=== PATIENT | male | born 1960 | race Caucasian/White ===

== ENCOUNTER → 2019-03-26 | Outpatient (CLI) | payer OTHER | END | disposition home or self-care (01) | LOC: ROC 08:11 | PROVIDERS: ATTEND Radiology Radiation Oncology | DX: C01 Malignant neoplasm of base of tongue (principal); F17.290 Nicotine dependence, other tobacco product, uncomplicated | CPT/HCPCS: 99215; G0463 ==

== ENCOUNTER 2019-04-09 06:06 | Day surgery (SDC) | payer OTHER ==
[~2019-04-09] VITALS: Ht 180.3 cm; Wt 113.4 kg
[2019-04-09] MEDS ORDERED: CEFAZOLIN PMX 1GM/50ML 50 ML IV STA (06:51)
[2019-04-09] MEDS ORDERED: SODIUM CHLORIDE 0.9% 1,000 ML IV SCH (06:51)
[2019-04-09 06:58] VITALS: BP 155/105
[2019-04-09] MEDS ORDERED: FENTANYL PF 100 MCG/2ML ONE (07:45)
[2019-04-09] MEDS ORDERED: FLUMAZENIL 0.1 MG/1 ML, 5ML ONE (07:45)
[2019-04-09] MEDS ORDERED: MIDAZOLAM 1 MG/ML, 5ML ONE (07:45)
[2019-04-09] MEDS ORDERED: NALOXONE 1 MG/ML, 2ML ONE (07:46)
[2019-04-09] MEDS ORDERED: OMNIPAQUE 350 MG/ML, 100ML BOTTLE ONE (08:18)
== END 2019-04-09 08:45 | disposition home or self-care (01) ==
LOC: OUT 06:06
PROVIDERS: ATTEND Radiology Radiation Oncology
DX: C01 Malignant neoplasm of base of tongue (principal); K76.0 Fatty (change of) liver, not elsewhere classified; F17.210 Nicotine dependence, cigarettes, uncomplicated; Z98.890 Other specified postprocedural states; Z80.0 Family history of malignant neoplasm of digestive organs; Z82.49 Family history of ischemic heart disease and other diseases of the circulatory system
CPT/HCPCS: 70491; 74160; J2250; J3010; J7030; Q9967; J2310

== ENCOUNTER → 2019-04-22 | Outpatient (CLI) | payer OTHER | END | disposition home or self-care (01) | LOC: CFH 07:12 | PROVIDERS: ATTEND Internal Medicine Hematology & Oncology | DX: C01 Malignant neoplasm of base of tongue (principal); R94.5 Abnormal results of liver function studies | CPT/HCPCS: 76700 ==

== ENCOUNTER 2019-05-11 14:40 | Observation (INO) | payer OTHER ==
[~2019-05-11] VITALS: Ht 182.9 cm; Wt 99.1 kg
--- NOTE | 2019-05-11 14:46 | NUR ---
CODE NEURO INITIATED AT 1430. [facility] ARRIVED AT 1440. NEUROLOGIST PAGED AT 1444.
[2019-05-11 15:22] LABS: BASOPHILS % (AUTO) 0 % (0-1); EOSINOPHILS % (AUTO) 0 % (1-7); LYMPHOCYTES # (AUTO) 0.35 x10^3/uL (1-3.4); LYMPHOCYTES % (AUTO) 10 % (22-44); MD NO; MEAN CORPUSCULAR HEMOGLOBIN 30.9 pg (27.5-34.5); MEAN CORPUSCULAR HGB CONC 34.4 g/dL (33.2-36.2); MEAN PLATELET VOLUME 6.9 fL (7.4-10.4); MONOCYTES # (AUTO) 0.06 x10^3/uL (0.2-0.8); MONOCYTES % (AUTO) 2 % (2-9); NEUTROPHILS % (AUTO) 89 % (42-75); PLATELET COUNT 190 x10^3/uL (130-400); RED BLOOD COUNT 4.72 x10^6/uL (4.38-5.82); RED CELL DISTRIBUTION WIDTH 13.7 % (9.4-14.8)
[2019-05-11] MEDS ORDERED: ALTEPLASE 9 MG in SYRINGE 1 EA IVPush ONE (15:30)
[2019-05-11] MEDS ORDERED: ALTEPLASE IV ONE (15:30)
[2019-05-11] MEDS ORDERED: SODIUM CHLORIDE 0.9% 1,000ML IVBOLUS ONE (15:30)
[2019-05-11 15:31] LABS: INTERNATIONAL NORMALIZED RATIO 1.07 (0.93-1.1); PROTHROMBIN TIME 11.3 Seconds (9.6-11.5)
--- NOTE | 2019-05-11 15:42 | NUR ---
LATE ENTRY FOR PT ARRIVAL 1440. PT BIB EMS FROM [facility], WHERE HE HAD A SUDDEN ONSET OF RIGHT SIDED WEAKNESS AND HAD A GLF WHILE IN THE BATHROOM. HE PRESENTS WITH RIGHT ARM WEAKNESS, RIGHT SIDE FACIAL DROOP AND IS APHASIC. PT TO CT AT 1415. RTD TO ED AND ASSESSED BY DR BUSCH AT 1505. PT TO MRI AT 1510.
[2019-05-11] MEDS ORDERED: GADOTERATE 10 MMOL/20 ML SYR ONE (16:16)
--- NOTE | 2019-05-11 16:37 | NUR ---
BREAK RN: PT UPRIGHT ON GURNEY AWAKE & COMFORTABLE, NEURO ASSESSMENT CONTINUES TO IMPROVE WHILE tPA INFUSING, RESPONDS APPROP TO STAFF, NAD, COMFORT MEASURES PROVIDED, FAMILY AT BS, CALL LIGHT WITHIN REACH.
[2019-05-11] MEDS ORDERED: ALTEPLASE 1 MG/ML, 100ML ONE (17:06)
--- NOTE | 2019-05-11 17:15 | NUR ---
PT C/O LEFT SIDE TEMPORAL FRENCH, 04/13. DISCUSSED WITH DR GOMEZ. NO NEW ORDERS AT THIS TIME. CONTINUE TO MONITOR
--- NOTE | 2019-05-11 17:22 | NUR ---
DR COBOS AT BEDSIDE. PT ASSESSMENT REVIEWED. C/O FRENCH DISCUSSED.
--- NOTE | 2019-05-11 17:54 | NUR ---
PT MOVED INTO A [facility]OS[facility] BED. PT ABLE TO STAND AND TRANSFER W/ITH RN STANDBY ASSIST.
[2019-05-11] MEDS ORDERED: ACETAMINOPHEN 325 MG TABLET PO PRN (18:00)
[2019-05-11] MEDS ORDERED: LABETALOL 5MG/ML, 20ML IV PRN (18:00)
[2019-05-11] MEDS ORDERED: morphine SULFATE 10 MG/ML, 1ML IVPush PRN (18:00)
[2019-05-11] MEDS ORDERED: ENALAPRILAT 1.25 MG/ML, 2ML IV PRN (18:00)
[2019-05-11] MEDS: SODIUM CHLORIDE 0.9% 1,000 ML IV SCH (19:13)
--- NOTE | 2019-05-11 19:17 | NUR ---
[facility] RPT TO [facility]. [facility] TO TRANSPORT PT TO CCU. NEURO ASSESSMENT REVIEWED IN DETAIL WITH TORSTEN AND QUESTIONS ANSWERED.
[2019-05-11] MEDS: DEXAMETHASONE 1 MG TABLET PO SCH (21:01)
[2019-05-11] MEDS: ATORVASTATIN 80 MG TABLET PO SCH (21:02)
[2019-05-12 04:00] VITALS: BP 125/82
[2019-05-12 05:04] LABS: CHOL/HDL RATIO 5.5; LDL/HDL RATIO 3.4 (0.5-3.0)
[2019-05-12] MEDS: SODIUM CHLORIDE 0.9% 1,000 ML IV SCH ×2 (07:27→19:36)
[2019-05-12] MEDS: DEXAMETHASONE 1 MG TABLET PO SCH ×2 (08:49→20:31)
--- NOTE | 2019-05-12 10:47 | NUR ---
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
[2019-05-12] MEDS ORDERED: ONDA8TAB9 PO (11:14)
[2019-05-12] MEDS ORDERED: OMEP20TA9 PO (11:15)
[2019-05-12] MEDS ORDERED: [UNRECOGNIZED DRUG - CODE] PO (11:15)
[2019-05-12] MEDS ORDERED: HYDR-3653 PO (11:15)
[2019-05-12] MEDS ORDERED: DEXA4TAB66 PO (11:15)
[2019-05-12] MEDS ORDERED: POLYETHYLENE GLYCOL 17 GM PACKET NG PRN (11:30)
[2019-05-12] MEDS ORDERED: GUAIFENESIN ER 600 MG TABLET PO PRN (11:30)
[2019-05-12] MEDS: ONDANSETRON 2MG/ML, 2ML IVPush PRN ×2 (12:25→20:36)
[2019-05-12] MEDS: ATORVASTATIN 80 MG TABLET PO SCH (20:31)
[2019-05-12] MEDS: DABIGATRAN 75 MG CAPSULE PO SCH (20:31)
[2019-05-13 03:20] VITALS: BP 135/88
[2019-05-13 06:46] LABS: BASOPHILS # (AUTO) 0.01 x10^3/uL (0-0.1); BASOPHILS % (AUTO) 0 % (0-1); EOSINOPHILS # (AUTO) 0.01 x10^3/uL (0-0.4); EOSINOPHILS % (AUTO) 0 % (1-7); LYMPHOCYTES # (AUTO) 0.54 x10^3/uL (1-3.4); LYMPHOCYTES % (AUTO) 14 % (22-44); MD NO; MEAN CORPUSCULAR HEMOGLOBIN 30.7 pg (27.5-34.5); MEAN CORPUSCULAR HGB CONC 34.1 g/dL (33.2-36.2); MEAN CORPUSCULAR VOLUME 89.8 fL (81-97); MEAN PLATELET VOLUME 6.8 fL (7.4-10.4); MONOCYTES # (AUTO) 0.44 x10^3/uL (0.2-0.8); MONOCYTES % (AUTO) 11 % (2-9); NEUTROPHILS % (AUTO) 75 % (42-75); PLATELET COUNT 202 x10^3/uL (130-400); RED BLOOD COUNT 4.14 x10^6/uL (4.38-5.82); RED CELL DISTRIBUTION WIDTH 13.8 % (9.4-14.8)
[2019-05-13 07:02] VITALS: BP 150/98
[2019-05-13 07:24] LABS: CHLORIDE 105 mmol/L (98-107)
[2019-05-13 07:35] LABS: ALANINE AMINOTRANSFERASE 65 U/L (12-78); ALBUMIN 2.7 g/dL (3.4-5.0); ALKALINE PHOSPHATASE 29 U/L (45-117); ANION GAP 6 mmol/L (5-15); BILIRUBIN,TOTAL 0.5 mg/dL (0.2-1.0); CALCIUM 7.9 mg/dL (8.5-10.1); CREATININE 0.65 mg/dL (0.7-1.3); TOTAL PROTEIN 5.5 g/dL (6.4-8.2)
[2019-05-13] MEDS: DEXAMETHASONE 1 MG TABLET PO SCH (10:20)
[2019-05-13] MEDS: DABIGATRAN 75 MG CAPSULE PO SCH (10:21)
[2019-05-13 13:26] VITALS: BP 131/87
[2019-05-13] MEDS ORDERED: ATOR-2 PO (14:43)
[2019-05-13] MEDS ORDERED: DABI75CA3 PO ×2 (14:43)
[2019-05-13] MEDS ORDERED: DABI150C PO (15:39)
[2019-05-13] MEDS ORDERED: DABIGATRAN 150 MG CAPSULE PO SCH (21:00)
== END 2019-05-13 15:55 | disposition home or self-care (01) ==
LOC: SUATTDRO 16:45 → ED 18:30 → EDIP 18:31 → INTOOBSV 18:31 → CCU 19:30 → 4EST 05-13 04:32 → DCLOUNGE 05-13 15:53
PROVIDERS: ADMIT Internal Medicine; ATTEND Internal Medicine
DX: I63.9 Cerebral infarction, unspecified (principal); C34.90 Malignant neoplasm of unspecified part of unspecified bronchus or lung; G81.91 Hemiplegia, unspecified affecting right dominant side; R47.01 Aphasia; C01 Malignant neoplasm of base of tongue; R29.711 NIHSS score 11; R47.1 Dysarthria and anarthria; G51.0 Bell's palsy; R13.10 Dysphagia, unspecified; Z85.89 Personal history of malignant neoplasm of other organs and systems; Z92.21 Personal history of antineoplastic chemotherapy; Z92.3 Personal history of irradiation; Z79.01 Long term (current) use of anticoagulants; Z79.899 Other long term (current) drug therapy; Z86.73 Personal history of transient ischemic attack (TIA), and cerebral infarction without residual deficits
CPT/HCPCS: 36415; 70450; 70496; 70498; 70551; 70553; 74230; 77336; 77386; 80047; 80053; 80061; 83880; 85025; 85610; 85730; 87081; 92526; 92611; 93005; 93306; 93356; 96361; 96365; 96375; 96376; 97161; 99291; 99292; A9575; G0378; J2270; J2405; J2997; J7030; 96366; 99285

== ENCOUNTER → 2019-05-18 | Outpatient (CLI) | payer OTHER ==
[~2019-05-18] MED LIST: ATOR-2 PO; DABI150C PO; DABI75CA3 PO; DEXA4TAB66 PO; HYDR-3653 PO; OMEP20TA9 PO; ONDA8TAB9 PO; [UNRECOGNIZED DRUG - CODE] PO
== END | disposition home or self-care (01) ==
LOC: RAD 12:35
PROVIDERS: ATTEND Internal Medicine Hematology & Oncology
DX: R60.0 Localized edema (principal); C01 Malignant neoplasm of base of tongue; M79.605 Pain in left leg; M79.604 Pain in right leg
CPT/HCPCS: 93970

== ENCOUNTER 2019-06-17 09:39 | Outpatient (CLI) | payer OTHER | END 2019-06-17 23:59 | disposition home or self-care (01) | LOC: ROC 09:39 | PROVIDERS: ATTEND Radiology Radiation Oncology | DX: C01 Malignant neoplasm of base of tongue (principal) | CPT/HCPCS: 99212; G0463 ==

== ENCOUNTER 2019-07-16 07:46 | Outpatient (CLI) | payer OTHER | END 2019-07-16 23:59 | disposition home or self-care (01) | LOC: ROC 07:46 | PROVIDERS: ATTEND Radiology Radiation Oncology | DX: Z08 Encounter for follow-up examination after completed treatment for malignant neoplasm (principal); C01 Malignant neoplasm of base of tongue; Z87.891 Personal history of nicotine dependence; Z86.73 Personal history of transient ischemic attack (TIA), and cerebral infarction without residual deficits; Z85.118 Personal history of other malignant neoplasm of bronchus and lung | CPT/HCPCS: 99212; G0463 ==

== ENCOUNTER → 2019-09-02 | Outpatient (CLI) | payer OTHER | END | disposition home or self-care (01) | LOC: PETCFH 08:37 | PROVIDERS: ATTEND Internal Medicine Hematology & Oncology | DX: C01 Malignant neoplasm of base of tongue (principal); N32.89 Other specified disorders of bladder | CPT/HCPCS: 78815; A9552 ==

== ENCOUNTER 2019-10-13 07:58 | Day surgery (SDC) | payer OTHER ==
[~2019-10-13] VITALS: Ht 180.3 cm; Wt 93.2 kg
[2019-10-13] MEDS ORDERED: ASPI325T17 PO (08:23)
[2019-10-13] MEDS ORDERED: ATOR-2 PO (08:23)
[2019-10-13] MEDS ORDERED: SODIUM CHLORIDE 0.9% 1,000 ML IV SCH ×2 (08:30→11:40)
[2019-10-13 08:35] VITALS: BP 136/87
[2019-10-13 08:49] LABS: BASOPHILS # (AUTO) 0.03 x10^3/uL (0-0.1); BASOPHILS % (AUTO) 1 % (0-1); EOSINOPHILS # (AUTO) 0.27 x10^3/uL (0-0.4); EOSINOPHILS % (AUTO) 5 % (1-7); LYMPHOCYTES # (AUTO) 0.98 x10^3/uL (1-3.4); LYMPHOCYTES % (AUTO) 18 % (22-44); MD NO; MEAN CORPUSCULAR HEMOGLOBIN 28.7 pg (27.5-34.5); MEAN CORPUSCULAR HGB CONC 32.6 g/dL (33.2-36.2); MEAN CORPUSCULAR VOLUME 88.3 fL (81-97); MEAN PLATELET VOLUME 7.5 fL (7.4-10.4); MONOCYTES # (AUTO) 0.44 x10^3/uL (0.2-0.8); MONOCYTES % (AUTO) 8 % (2-9); NEUTROPHILS # (AUTO) 3.66 x10^3/uL (1.8-6.8); NEUTROPHILS % (AUTO) 68 % (42-75); PLATELET COUNT 207 x10^3/uL (130-400); RED BLOOD COUNT 5.26 x10^6/uL (4.38-5.82); RED CELL DISTRIBUTION WIDTH 14.3 % (9.4-14.8)
[2019-10-13 09:00] LABS: ANION GAP 4 mmol/L (5-15); CALCIUM 8.7 mg/dL (8.5-10.1); CHLORIDE 110 mmol/L (98-107); CREATININE 0.95 mg/dL (0.7-1.3)
[2019-10-13] MEDS ORDERED: LIDOCAINE-MPF 2% ,5ML ONE ×2 (10:19→11:22)
[2019-10-13] MEDS ORDERED: MIDAZOLAM 1 MG/ML, 2ML ONE (10:19)
[2019-10-13] MEDS ORDERED: FENTANYL PF 250 MCG/5ML ONE (10:20)
[2019-10-13] MEDS ORDERED: ROCURONIUM 10MG/ML,5ML ONE (10:35)
[2019-10-13] MEDS ORDERED: ONDANSETRON 2MG/ML, 2ML ONE (10:35)
[2019-10-13] MEDS ORDERED: PROPOFOL 10 MG/ML, 20ML ONE (10:35)
[2019-10-13] MEDS ORDERED: DEXAMETHASONE 4 MG/ML, 1ML ONE (10:35)
[2019-10-13] MEDS ORDERED: CEFAZOLIN 1,000 MG ONE (10:35)
[2019-10-13] MEDS ORDERED: SUCCINYLCHOLINE 20 MG/ML, 10ML ONE (10:35)
[2019-10-13] MEDS ORDERED: SUGAMMADEX 200 MG/2 ML IVPush ONE (11:01)
[2019-10-13] MEDS ORDERED: HEPARIN 1,000 UNITS/ML, 10ML ONE ×2 (11:04)
[2019-10-13] MEDS ORDERED: LABETALOL 5MG/ML, 20ML ONE (12:01)
[2019-10-13] MEDS ORDERED: CLOPIDOGREL 300 MG TABLET PO ONE (12:11)
[2019-10-13] MEDS ORDERED: CLOPIDOGREL 300 MG TABLET ONE (12:24)
[2019-10-13] MEDS ORDERED: ASPI81TA45 PO (15:59)
[2019-10-13] MEDS ORDERED: CLOP75TA PO (15:59)
[2019-10-13] MEDS ORDERED: ATORVASTATIN 80 MG TABLET PO SCH (21:00)
[2019-10-14] MEDS ORDERED: ASPIRIN 81 MG TABLET EC PO SCH (06:00)
[2019-10-14] MEDS ORDERED: CLOPIDOGREL 75 MG TABLET PO SCH (09:00)
== END 2019-10-13 16:55 | disposition home or self-care (01) ==
LOC: CACL 07:58
PROVIDERS: ATTEND Internal Medicine Cardiovascular Disease
DX: Q21.1 Atrial septal defect (principal); I63.9 Cerebral infarction, unspecified; Z11.59 Encounter for screening for other viral diseases; F12.90 Cannabis use, unspecified, uncomplicated; Z79.01 Long term (current) use of anticoagulants; Z79.82 Long term (current) use of aspirin; Z79.899 Other long term (current) drug therapy; Z85.810 Personal history of malignant neoplasm of tongue; Z87.891 Personal history of nicotine dependence; Z92.21 Personal history of antineoplastic chemotherapy; Z92.3 Personal history of irradiation; Z83.42 Family history of familial hypercholesterolemia
CPT/HCPCS: 36415; 76937; 80048; 85025; 85347; 87635; 93005; 93308; 93312; 93321; 93325; 93580; C1760; C1769; C1817; C1894; J0330; J0690; J1100; J1644; J2250; J2405; J2704; J3010; J7030; 93582

== ENCOUNTER → 2019-11-26 | Outpatient (CLI) | payer OTHER ==
[~2019-11-26] MED LIST changes: +ASPI325T17 PO; +ASPI81TA45 PO; +CLOP75TA PO
== END | disposition home or self-care (01) ==
LOC: CVU 06:40
PROVIDERS: ATTEND Internal Medicine Cardiovascular Disease
DX: Z01.810 Encounter for preprocedural cardiovascular examination (principal); Q21.1 Atrial septal defect; I65.29 Occlusion and stenosis of unspecified carotid artery; I08.8 Other rheumatic multiple valve diseases
CPT/HCPCS: 93308; 93321; 93325

== ENCOUNTER 2020-01-07 08:26 | Outpatient (CLI) | payer OTHER | END 2020-01-07 23:59 | disposition home or self-care (01) | LOC: ROC 08:26 | PROVIDERS: ATTEND Radiology Radiation Oncology | DX: C01 Malignant neoplasm of base of tongue (principal) | CPT/HCPCS: 99212; G0463 ==

== ENCOUNTER 2020-05-13 08:29 | Outpatient (CLI) | payer OTHER | END 2020-05-13 23:59 | disposition home or self-care (01) | LOC: ROC 08:29 | PROVIDERS: ATTEND Radiology Radiation Oncology | DX: Z08 Encounter for follow-up examination after completed treatment for malignant neoplasm (principal); Z85.810 Personal history of malignant neoplasm of tongue | CPT/HCPCS: 99212; G0463 ==

== ENCOUNTER 2020-10-20 10:23 | Outpatient (CLI) | payer OTHER | END 2020-10-20 23:59 | disposition home or self-care (01) | LOC: ROC 10:23 | PROVIDERS: ATTEND Radiology Radiation Oncology | DX: Z08 Encounter for follow-up examination after completed treatment for malignant neoplasm (principal); Z85.810 Personal history of malignant neoplasm of tongue; I89.0 Lymphedema, not elsewhere classified | CPT/HCPCS: 99212; G0463 ==